=== PATIENT | male | born 1990 | race African-American/Black ===

== ENCOUNTER 2016-12-01 17:29 | Emergency (ER) | payer MEDICAID ==
[2016-12-01 17:40] VITALS: BP 99/77; PULSE 97; RESP 17; TEMP 99; O2SAT 98
--- NOTE | 2016-12-01 18:10 | EDPHY ---
General - History Smoking Status: Never smoked Narrative: CHIEF COMPLAINT: "scabs in armpit" HISTORY OF PRESENT ILLNESS: Patient complains of scabs in his left armpit. This started 2 days ago. It is now spreading to his back. They are somewhat painful but not necessarily pruritic. No redness. No fever. No trauma or injury. He has attempted no treatment for this. Worse with palpation and movement. Improved at rest. No radiating pain. He mentioned this to his status at work and they recommended he come to the emergency department due to the discomfort. No other associated complaints or modifying factors REVIEW OF SYSTEMS: Ten systems reviewed and are negative unless otherwise noted in the HPI PCP: Tona Powers SPECIALISTS: None PAST MEDICAL HISTORY: Icthyosis PAST SURGICAL HISTORY: Tonsillectomy SOCIAL HISTORY: Nonsmoker. No alcohol or illicit substance use. FAMILY HISTORY: Noncontributory EXAMINATION General Appearance: Alert, no distress Head: normocephalic, atraumatic Eyes: Pupils equal and round, no conjunctival pallor or injection ENT, Mouth: Mucous membranes moist. Airway patent Neck: Normal inspection, supple, non-tender Respiratory: Retractions or distress Cardiovascular: Regular rate. Symmetric radial pulses 2+ Back: non-tender, no bony abnormalities. Small areas of folliculitis above the left scapula. No fluctuance. No cellulitis. Neurological: A&O, nonfocal, normal gait Skin: Warm and dry, icthyosis present globally. There are small areas of folliculitis or early hidradenitis in the left axilla. No palpable fluctuance. No drainable areas. No surrounding erythema. These are mildly painful Extremities: Nontender, no pedal edema. Symmetric range of motion Psychiatric: Mood and affect normal DIFFERENTIAL DIAGNOSES: Including but not limited to hidradenitis suppurativa, folliculitis, abscess MDM: 6:10 p.m. Possible early hidradenitis versus folliculitis. There is no fluctuance or drainable abscess. There are several small areas of involvement. No cellulitis. Vitals are within normal limits. I will treat him with Bactrim and Keflex and recommend that he follow up with his primary care physician for further care and monitoring and to discuss Derm referral. I would like him to be seen within 48 hours or to return if the symptoms worsen in the interim. First dose of antibiotics given here. He is comfortable this plan. He is discharged home neurovascular intact in stable condition ([place] [facility]) Discussion: The patient was evaluated and managed by the Physician [employer]/ Nurse Practitioner. My co-signature indicates that I have reviewed this chart and I agree with the findings and plan of care as documented. I am the secondary supervising physician. (Danni George) - Objective Vital Signs: Initial Vital Signs Temperature (C) 37.2 C 12/01/16 17:38 Heart Rate 97 12/01/16 17:38 Respiratory Rate 17 12/01/16 17:38 Blood Pressure 99/77 L 12/01/16 17:38 O2 Sat (%) 98 12/01/16 17:38 O2 Delivery Mode Room Air Allergies/Adverse Reactions: No Known Allergies Allergy (Verified 12/01/16 17:37) Home Medications: Medication Instructions Recorded Cephalexin [Keflex (*)] 500 mg PO QID #36 cap 12/01/16 Sulfamethox/Tmp 800/160 mg 1 tab PO BID 10 Days tab 12/01/16 [Bactrim Ds] Medications Given: Discontinued Medications Cephalexin (Keflex 500 Mg Prepack#4) 1 btl TAKEHOME EDNOW ONE PRN Reason: Protocol Stop: 12/01/16 18:11 Last Admin: 12/01/16 18:21 Dose: 1 btl Trimethoprim/Sulfamethoxazole (Bactrim Ds Prepack#2) 1 btl TAKEHOME EDNOW ONE Stop: 12/01/16 18:11 Last Admin: 12/01/16 18:21 Dose: 1 btl Departure - Departure Disposition: Home, Routine, Self-Care Clinical Impression: Hidradenitis axillaris Condition: Good Instructions: Cephalexin (By mouth), Sulfamethoxazole/Trimethoprim (By mouth), Folliculitis (ED), Hidradenitis Suppurativa (ED) Additional Instructions: 1. Medications as discussed 2. ED precautions for worsening symptoms, fever, fluctuance or drainage Referrals: Tona Powers MD [Primary Care Provider] - As per Instructions Prescriptions: Cephalexin [Keflex (*)] 500 mg PO QID #36 cap Sulfamethox/Tmp 800/160 mg [Bactrim Ds] 1 tab PO BID 10 Days tab
[2016-12-01] MEDS: SULFAMET/TMP DS PREPACK#2 BTL TAKEHOME ONE (18:21)
[2016-12-01] MEDS: CEPHALEXIN 500MG PREPACK#4 BTL TAKEHOME ONE (18:21)
== END 2016-12-01 18:26 | disposition home or self-care (01) ==
DX: L73.2 Hidradenitis suppurativa (principal)